=== PATIENT | female | born 1930 | race Caucasian/White ===

== ENCOUNTER 2017-01-08 14:16 | Inpatient (IN) ==
[2017-01-08] MEDS ORDERED: ZIPRASIDONE 20 MG/1 ML VIAL IM STA (14:22)
[2017-01-08] MEDS ORDERED: SODIUM CHLORIDE 0.9% 500 ML IV STA (14:23)
[2017-01-08] MEDS ORDERED: ZIPRASIDONE 20 MG/1 ML VIAL IM ONE (14:31)
--- NOTE | 2017-01-08 14:54 | Emergency Department Note ---
Scott Coley Hilary, am scribing for, and in the presence of, Jose Paniagua MD 14: 43. Arcelia Coley James D, MD, personally performed the services described in this documentation, ascribed by Sharon Chavez in my presence, and it is both accurate and complete [id number] . Arrival - Arrival Chief Complaint: Altered Mental Status Stated Complaint: altered mental status ED Nursing Triage Note: Brought in per EMS from home with c/o altered mental status onset last pm with worsening this am. Family reports she is more confused than normal, had difficulty walking at home. Uncooperative, yelling and cursing at present. Received from EMS in 4-point restraints, continually attempting to kick and hit staff. Mode of Arrival: Stretcher Limitations: No Limitations Source: Patient, RN Notes Reviewed Time Seen by Provider: 01/08/17 14:22 - History of Present Illness HPI Narrative: Pt is a 86 y/o white female brought into the ED via EMS from home with c/o AMS which onset last night and worsened this morning. Pts family is in the room and states that she is more confused than normal and has been having trouble walking. Yesterday morning she was able to walk just fine. Pts family denies fever or dysuria but they state that she can't communicate with her and that she wont talk. Pt has Alzheimers per family members. No other complaints or problems stated in the ED. Onset (ago): day(s) Consistency: constant Severity: severe Severity scale (1-10): 4 Date of Last Menstrual Period: PM Allergies/Adverse Reactions: Allergies Allergy/AdvReac Type Severity Reaction Status Date / Time No Known Allergies Allergy Verified 01/08/17 14:28 Home Medications: Home Medications Medication Instructions Recorded Confirmed Type Levothyroxine Tab [Synthroid Tab] 75 mcg PO DAILY@0700 06/27/15 06/27/15 History Memantine HCl [Namenda XR] 28 mg PO DAILY 06/27/15 06/27/15 History Omeprazole 20 mg PO DAILY 06/27/15 06/27/15 History Sertraline [Zoloft] 50 mg PO DAILY 06/27/15 06/27/15 History Solifenacin Succinate [Vesicare] 10 mg PO DAILY 12/15/15 12/15/15 History Atorvastatin [Lipitor] 80 mg PO BEDTIME #60 tablet 06/29/15 Rx Carvedilol [Coreg] 6.25 mg PO BID #60 tablet 06/29/15 Rx Cefuroxime Tab [Ceftin] 250 mg PO BID #10 tablet 06/29/15 Rx Clopidogrel [Plavix] 75 mg PO DAILY #30 tablet 06/29/15 Rx Donepezil [Aricept] 10 mg PO DAILY #30 tablet 06/29/15 Rx Gabapentin 300 mg PO BID #60 capsule 06/29/15 Rx Quetiapine Fumarate [Seroquel] 50 mg PO Q6H PRN #60 tablet 06/29/15 Rx metFORMIN [Glucophage] 250 mg PO BID W/MEALS #0 06/29/15 06/27/15 Rx Review of System - Review of System ROS unobtainable: due to mental status 12 point system: reviewed and no additional remarkable complaints except as stated - Review of System Constitutional: Present: weakness. Absent: fever Neurological: Present: weakness, confusion Medical,Surgical,& Family Hx - Social History Smoking Status: Never smoker Frequency of Alcohol Use: None Type of Drug Use: None Exam Physical Examination: GENERAL: This is a chronically ill appearing female, well-developed in no apparent distress. VITAL SIGNS: Temperature: 98.3 Pulse: 120 Respiratory: 24 Blood Pressure: 191/ 127 O2 Sat: 99 HEENT: Head is normocephalic and atraumatic. Pupils are equally round and reactive to light. Extraocular movement are intact. Oropharynx is benign with moist mucous membranes. NECK: Neck is soft and supple without tenderness. There are no masses. There is no lymphadenopathy. LUNGS: Lungs are clear to auscultation bilaterally. Chest rises symmetrically. There is no chest wall tenderness. CV: Heart is regular rate and rhythm without murmurs, rubs, or gallops. ABDOMEN: Abdomen is soft,non- tender to palpation. There are no abnormal masses palpated. There is no organomegaly. Bowel sounds are present and active. SKIN: Skin is warm and dry. No rash. EXTREMITIES: Patient has full range of motion without tenderness. There is no pedal edema. NEUROLOGIC: Awake, alert, and oriented x4. Cranial nerves II through XII are grossly intact. There are no motorsensory deficits. PSYCHIATRIC: Normal affect. Agitated, demented. Vital Signs: Vital Signs Temperature 98.3 F 01/08/17 15:00 Pulse Rate 111 H 01/08/17 15:00 Respiratory Rate 18 01/08/17 15:00 Blood Pressure 178/78 01/08/17 15:00 O2 Sat by Pulse Oximetry 96 01/08/17 15:00 Course - Consultations Consultation #1: Discussed with hospitalist. Patient will be admitted to their service. Time: 16:11 Results - Labs CBC & BMP: 01/08/17 15:00 01/08/17 15:00 Lab Results: I have reviewed the patients labs Labs: Laboratory Tests 01/08/17 01/08/17 01/08/17 15:00 15:00 15:00 WBC 6.4 RBC 4.07 Hgb 12.8 Hct 35.9 Plt Count 440 H INR 1.1 PT Patient/Control Mix 11.6 Circ Anticoag PTT 29.3 Sodium Potassium Chloride Carbon Dioxide Anion Gap BUN BUN/Creatinine Ratio Glucose Calcium Alkaline Phosphatase Globulin Albumin/Globulin Ratio TSH 3rd Generation Urine pH 6.0 Ur Specific [place] 1.002 Urine Ketones 5 Urine Nitrate Positive H Urine Urobilinogen < 2.0 H Urine Leukocytes Large H Urine WBC 51 Urine Opiates Screen Ur Barbiturates Screen Ur Phencyclidine Scrn U Amphetamine/Methamph U Benzodiazepines Scrn U Cocaine Metab Screen U Cannabinoids Screen Serum Alcohol 01/08/17 01/08/17 15:00 15:00 WBC RBC Hgb Hct Plt Count INR PT Patient/Control Mix Circ Anticoag PTT Sodium 140 Potassium 3.4 L Chloride 104 Carbon Dioxide 21 Anion Gap 18.4 H BUN 15 BUN/Creatinine Ratio 21.00 H Glucose 177 H Calcium 11.0 H Alkaline Phosphatase 131 H Globulin 3.6 H Albumin/Globulin Ratio 1.0 L TSH 3rd Generation 11.400 H Urine pH Ur Specific [place] Urine Ketones Urine Nitrate Urine Urobilinogen Urine Leukocytes Urine WBC Urine Opiates Screen Negative Ur Barbiturates Screen Negative Ur Phencyclidine Scrn Negative U Amphetamine/Methamph Negative U Benzodiazepines Scrn Negative U Cocaine Metab Screen Negative U Cannabinoids Screen Negative Serum Alcohol < 15 L - Diagnostic Findings Procedure: Chest x-ray: image reviewed by me, report reviewed by me (Chronic scarring with minimal atelectasis at the lung bases), CT: image reviewed by me, report reviewed by me (CT head: No convincing CT evidence of acute intracranial abnormality. If there is clinical concern for CVA, MRI may be of benefit for further evaluation. Probable chronic microvascular ischemic change and volume loss. Old left parietal infart. Old lacunar infarct of left basal ganglia) Disposition Clinical Impression: Agitation, Alzheimer's type dementia Case discussed with: patient, patient's family Disposition: Still a Patient Condition: Stable
[2017-01-08 15:14] LABS: Basophils # 0.1 10*3/uL (0.0-0.2); Basophils % 0.8 % (0.0-0.8); Eosinophils # 0.2 10*3/uL (0.0-0.87); Eosinophils % 3.1 % (0.00-10.9); Hematocrit 35.9 VOL% (35.7-47.0); Hemoglobin 12.8 GM/DL (12.0-16.0); Immature Granulocytes % 0.3 %; Immature Granulocytes Absolute 0.02 #; Lymphocytes # 1.8 10*3/uL (1.4-4.0); Lymphocytes % 28.2 % (21.3-54.2); Mean Corpuscular HGB Conc 35.7 GM/DL (32-36); Mean Corpuscular Hemoglobin 31 PG (27-34); Mean Corpuscular Volume 88.2 FL (87-102); Mean Platelet Volume 10.3 FL (9.6-12.0); Monocytes # 0.8 10*3/uL (0.11-0.8); Monocytes % 12.6 % (1.7-12.7); Neutrophils # 3.5 10*3/uL (1.4-7.4); Platelet Count 440 T/CUMM (130-400); Red Blood Count 4.07 MC/CUMM (3.8-5.5); Red Cell Distribution Width 12.7 % (9.3-17.3); White Blood Count 6.4 T/CUMM (4-12)
[2017-01-08 15:25] LABS: INR 1.1; PT Patient Result 11.6 SECS; Partial Thromboplastin Time 29.3 SECS (0-40)
--- NOTE | 2017-01-08 15:27 | XRay Report ---
Portable chest Date: 01/08/2017 Clinical history: Alteration of consciousness Comparison: 06/27/2015 Technique: Portable AP sitting chest Findings: The heart is normal in size. Calcified granulomata/nodes with chronic scarring. Minimal atelectasis at the lung bases. Stable mediastinum and osseous structures. Impression: Chronic scarring with minimal atelectasis at the lung bases. PROCEDURE INTERPRETED AT [facility] DEPARTMENT OF RADIOLOGY Final Report Signed by: Dr. Dahiana Harvey
[2017-01-08 15:31] LABS: Ammonia 17 UMOL/L (11-32)
--- NOTE | 2017-01-08 15:37 | CT Report ---
CT head/brain wo con Indication: Mental status changes Comparison: CT brain dated June 27, 2015 Technique: Multiple axial tomographic images of the brain were obtained without the use of intravenous contrast. Findings: Midline structures are nondisplaced. Moderate global volume loss present. Marked periventricular and subcortical hypoattenuation noted which is nonspecific but consistent with chronic microvascular ischemic change. Demyelinating process and vasculitis also considerations. Moderate encephalomalacia the left parietal lobe consistent with old infarct. Old lacunar infarct of left basal ganglia. There is no evidence of acute intracranial hemorrhage or hydrocephalus. Atherosclerotic calcifications demonstrated. The visualized paranasal sinuses and bilateral mastoid air cells are essentially clear. IMPRESSION: No convincing CT evidence of acute intracranial abnormality. If there is clinical concern for CVA, MRI may be of benefit for further evaluation. Probable chronic microvascular ischemic change and volume loss. Old left parietal infarct. Old lacunar infarct of left basal ganglia. The CT exam was performed using one or more of the following dose reduction techniques: Automated exposure control, adjustment of the mA and/or kV according to patient size, or use of iterative reconstruction technique. PROCEDURE INTERPRETED AT [facility] DEPARTMENT OF RADIOLOGY Final Report Signed by: Dr Valdo Gibbs
[2017-01-08 15:41] LABS: Apearance,Urine Slightly Hazy (Clear); Bilirubin,Urine Negative (Negative); Blood, Urine Negative (Negative); Glucose,Urine (UA) Negative (Negative); Ketones,Urine 5 mg/dL (Negative); Nitrite,Urine Positive (Negative); Protein,Urine Negative; Urine Color Yellow (Yellow); Urine Specific Gravity 1.002 (1.001-1.035); Urine Urobilinogen < 2.0 EU/DL (0.2-1.0); WBC,Urine 51 /HPF (0-6)
[2017-01-08 15:45] LABS: Barbiturates Screen,Urine Negative (Negative); Benzodiazepines Screen,Urine Negative (Negative); Cannabinoid Screen,Urine Negative (Negative); Opiate Screen,Urine Negative (Negative); Phencyclidine Screen,Urine Negative (Negative)
[2017-01-08 15:51] LABS: Alanine Aminotransferase 14 U/L (13-56); Albumin 3.9 G/DL (3.4-5.0); Alkaline Phosphatase 131 U/L (45-117); Aspartate Amino Transferase 11 U/L (0-37); Blood Urea Nitrogen 15 MG/DL (7-18); Glucose 177 MG/DL (74-106); Osmolality,Calculated 283.4 MOS/KG (273-304); Potassium 3.4 MMOL/L (3.5-5.1); Sodium 140 MMOL/L (136-145); Total Protein 7.5 G/DL (6.4-8.3)
[2017-01-08] MEDS ORDERED: cefTRIAXone 1,000 MG in SODIUM CHLORIDE 0.9% 100 ML IV STA (16:06)
[2017-01-08] MEDS ORDERED: cefTRIAXone 1,000 MG VIAL ONE (16:14)
--- NOTE | 2017-01-08 17:53 | Hospitalist History & Physical ---
Assessment and Plan (1) UTI (urinary tract infection) Status: Acute Assessment and plan: Start rocephin, f/u cultures Current Visit: No (2) Diabetes mellitus Status: Acute Assessment and plan: SSI Current Visit: No (3) Hypertension Status: Acute Assessment and plan: Elevated now, most likely due to agitation Takes coreg 6.25 daily at home, will continue at BID Current Visit: No (4) Agitation Status: Acute Assessment and plan: Geodon IM PRN Current Visit: Yes (5) Alzheimer's type dementia Status: Acute Current Visit: Yes (6) Hypothyroid Status: Acute Assessment and plan: No longer takes levothyroxine TSH elevated at 11 Will check free T4 Current Visit: Yes (7) Generalized weakness Status: Acute Assessment and plan: CT head without acute process Order MRI Current Visit: Yes History of Present Illness Chief complaint: weakness History of present illness: Ms. Hilliard is a 86 year old female WF with history of stroke (residual slurred speech) and dementia who presents with weakness. Patient has dementia and slurred speech so history is from . He reports that patient experienced leg weakness starting yesterday, she was unable to hold herself. She usually has a really good appetite, but has not been eating today. Family unable to say how different patient's mental status is from baseline. They are unable to understand her due to her stroke. They report that she does seem more agitated than usual. She is able to ambulate on her own at baseline. Of note she was previously on hospice but the family discontinued it. The reports that she only takes Plavix 75 daily, metformin 500 daily and coreg 6.25 Daily. He has to crush up her metformin and sneak it into a drink. She refuses to take all of her other medications except for seroquel sometimes. In the ED patient with CT showing old rowan but nothing acute. She was noted to have a urinary tract infection. She will be admitted to the hospitalist service for continuation of care. Code status discussed with the patient and he would like for patient to be Do Not Intubate. Medical reconciliation has been done. Home Medications Medication Instructions Recorded Confirmed Type Levothyroxine Tab [Synthroid Tab] 75 mcg PO DAILY@0700 06/27/15 06/27/15 History Memantine HCl [Namenda XR] 28 mg PO DAILY 06/27/15 06/27/15 History Omeprazole 20 mg PO DAILY 06/27/15 06/27/15 History Sertraline [Zoloft] 50 mg PO DAILY 06/27/15 06/27/15 History Solifenacin Succinate [Vesicare] 10 mg PO DAILY 06/27/15 06/27/15 History Atorvastatin [Lipitor] 80 mg PO BEDTIME #60 tablet 06/29/15 Rx Carvedilol [Coreg] 6.25 mg PO BID #60 tablet 06/29/15 Rx Cefuroxime Tab [Ceftin] 250 mg PO BID #10 tablet 06/29/15 Rx Clopidogrel [Plavix] 75 mg PO DAILY #30 tablet 06/29/15 Rx Donepezil [Aricept] 10 mg PO DAILY #30 tablet 06/29/15 Rx Gabapentin 300 mg PO BID #60 capsule 06/29/15 Rx Quetiapine Fumarate [Seroquel] 50 mg PO Q6H PRN #60 tablet 06/29/15 Rx metFORMIN [Glucophage] 250 mg PO BID W/MEALS #0 06/29/15 06/27/15 Rx Allergies Allergy/AdvReac Type Severity Reaction Status Date / Time No Known Allergies Allergy Verified 01/08/17 14:28 Medical,Surgical,& Family Hx - Medical History Psychological: History of: Depression Endocrine: History of: Dyslipidemia - Surgical History Reproductive Surgeries: Surgical HX of;: Hysterectomy - Family History Family History: Reports;: Family Diabetes, Family Stroke - Social History Smoking Status: Never smoker Frequency of Alcohol Use: None Type of Drug Use: None ROS unobtainable: due to mental status Exam - Constitutional Vitals: Period Temp Pulse Resp BP Sys/Shaw Pulse Ox Last 24 Hr 98.3 F-98.3 F 93-120 16-24 145-200/78-127 96-100 General appearance: normal weight - Head Head exam: Present: normocephalic, atraumatic - Eye Eye exam: Present: EOMI Pupils: Present: DARCY - ENT ENT exam: Present: other (dry mucus membranes) - Neck Neck exam: Present: normal inspection - Respiratory Respiratory exam: Present: clear to auscultation bilaterally. Absent: wheezes - Cardiovascular Cardiovascular exam: Present: regular rate and rhythm - GI/Abdominal GI/Abdominal exam: Present: normal bowel sounds, soft. Absent: tenderness - Extremities Exam Extremities exam: Present: normal inspection - Back Exam Back exam: Present: normal inspection - Neurological Exam Neurological exam: Present: alert, oriented X3 - Psychiatric Psychiatric exam: Present: normal affect, normal mood - Skin Skin exam: Present: warm, intact Results - Labs CBC & BMP: 01/08/17 15:00 01/08/17 15:00
[2017-01-08] MEDS ORDERED: ACETAMINOPHEN 325 MG TABLET PO PRN (18:04)
[2017-01-08] MEDS ORDERED: QUEtiapine 100 MG TABLET PO PRN (18:04)
[2017-01-08] MEDS ORDERED: GLUCAGON 1 MG VIAL IM PRN (18:04)
[2017-01-08] MEDS ORDERED: LACTULOSE 20 GM/30 ML UDCUP PO PRN (18:04)
[2017-01-08] MEDS ORDERED: ONDANSETRON 4 MG/2 ML VIAL IV PRN (18:04)
[2017-01-08] MEDS ORDERED: DOCUSATE SODIUM 100 MG CAPSULE PO PRN (18:04)
[2017-01-08] MEDS: SODIUM CHLORIDE 0.9% 1,000 ML IV SCH ×2 (19:04→23:53)
[2017-01-08] MEDS: ZIPRASIDONE 20 MG/1 ML VIAL IM PRN (20:39)
[2017-01-08] MEDS: CARVEDILOL 6.25 MG TABLET PO SCH (20:44)
[2017-01-08] MEDS ORDERED: LORazepam 2 MG/1 ML VIAL IV ONE (21:22)
[2017-01-08] MEDS ORDERED: HALOPERIDOL 5 MG/ML AMP IM ONE (21:23)
[2017-01-08] MEDS: INSULIN LISPRO 100 UNIT/ML SUBCUT SCH (22:40)
[2017-01-08] MEDS: ENOXAPARIN 40 MG/0.4 ML SYRINGE SUBCUT SCH (22:41)
[2017-01-09 05:34] LABS: Basophils # 0.1 10*3/uL (0.0-0.2); Basophils % 0.9 % (0.0-0.8); Eosinophils # 0.2 10*3/uL (0.0-0.87); Eosinophils % 3.3 % (0.00-10.9); Hematocrit 38.2 VOL% (35.7-47.0); Hemoglobin 13.2 GM/DL (12.0-16.0); Immature Granulocytes % 0.4 %; Immature Granulocytes Absolute 0.02 #; Lymphocytes % 34.9 % (21.3-54.2); Mean Corpuscular HGB Conc 34.6 GM/DL (32-36); Mean Corpuscular Hemoglobin 31 PG (27-34); Mean Platelet Volume 10.6 FL (9.6-12.0); Monocytes % 16.6 % (1.7-12.7); Neutrophils # 2.5 10*3/uL (1.4-7.4); Neutrophils % 43.9 % (38.7-73.9); Platelet Count 478 T/CUMM (130-400); White Blood Count 5.7 T/CUMM (4-12)
[2017-01-09 05:56] LABS: Band Neutrophils 1 % (0-10); Eosinophils 1 % (0-10); Hypochromasia Slight; Lymphocytes 37 % (20-55); Ovalocytes Slight; Segmented Neutrophils 44 % (50-85); Total Cells Counted 100
[2017-01-09 05:57] LABS: Platelet Estimate Increased
[2017-01-09 06:01] LABS: Calcium 9.5 MG/DL (8.5-10.1); Magnesium 1.9 MG/DL (1.8-2.4); Osmolality,Calculated 288.7 MOS/KG (273-304)
[2017-01-09] MEDS: SODIUM CHLORIDE 0.9% 1,000 ML IV SCH ×3 (07:14→20:33)
--- NOTE | 2017-01-09 08:41 | Physician Query Form ---
CLICK EDIT DOCUMENT TO SELECT QUERY ANSWER --> OK --> SIGN April Masters RN Clinical Call Worker W) [phone] (f) [phone] [email or web address] PROVIDERS: Make your selection(s) from the choices in EACH section by typing an "x" and enter comments in the comment section Please use your independent medical judgment in providing your response. This request does not imply that any particular answer is desired or expected. CLINICAL INDICATORS: (Providers should not edit this section) Based on documentation of "acute Alzheimer's type dementia" and "acute agitation ". Pt. treated with Geodon. Alzheimer's disease/dementia was documented in the record. If possible, please further clarify type of Alzheimer's and any associated manifestations: TYPE: ( ) Early Onset ( ) Late onset ( ) Other Alzheimer's disease, please specify: ( x) Clinically unable to determine ASSOCIATED MANIFESTATIONS: ( x) Dementia with acute delirium ( ) Dementia with behavioral disturbance (e.g., aggressive, combative, violent) ( ) Dementia with wandering ( ) Acute confusional state ( ) No associated manifestations ( ) Other manifestation, please specify: ( ) Clinically unable to determine COMMENTS: PLEASE ALSO DOCUMENT RESPONSE IN PROGRESS NOTES AND/OR DISCHARGE SUMMARY Use of terms such as suspected, likely, or probable (associated with a specific diagnosis that is being evaluated, monitored, or treated as if it exists) are acceptable and can be restated in the discharge summary if not ruled out. MTDD
[2017-01-09] MEDS ORDERED: LORazepam 2 MG/1 ML VIAL IV ONE (08:46)
[2017-01-09] MEDS ORDERED: LORazepam 2 MG/1 ML VIAL ONE (09:44)
[2017-01-09] MEDS: CARVEDILOL 6.25 MG TABLET PO SCH ×3 (09:45→17:48)
[2017-01-09] MEDS: CLOPIDOGREL 75 MG TABLET PO SCH ×2 (09:45→10:02)
[2017-01-09] MEDS: PANTOPRAZOLE 40 MG TABLET PO SCH ×2 (09:45→10:03)
[2017-01-09] MEDS: INSULIN LISPRO 100 UNIT/ML SUBCUT SCH ×4 (09:45→21:41)
[2017-01-09] MEDS: ZIPRASIDONE 20 MG/1 ML VIAL IM PRN ×2 (12:07→20:20)
[2017-01-09] MEDS: DEXTROSE 50% 25 GM/50 ML VIAL IV PRN ×2 (13:06→21:29)
--- NOTE | 2017-01-09 14:41 | Magnetic Resonance Report ---
Exam: MR head/brain wo con Date: 01/09/2017 6:04 PM Comparison: 06/28/2015, CT brain 01/08/2017 Indication: Alteration of consciousness with generalized weakness, prior CVA with slurred speech and progressive leg weakness. Technique:[Multiple acquisitions were obtained including sagittal T1, coronal T2, and axial ADC, diffusion, FLAIR, T2, GRE, and T1 scans without contrast only. Scans were obtained on an open 1.2 Cori magnet.] Findings: The ventricles are borderline in size with no midline displacement. The pituitary has normal appearance and the cerebellar tonsils are normal in their location. 16.8 mm area restricted diffusion in the right external capsule. Chronic left parietal and basal ganglia infarcts. Progressive atrophy and FLAIR/T2 hyperintensities. Minimal mucosal thickening in paranasal sinuses. No acute findings in the orbits or temporal bones. Impression: Acute ischemic 16.8 mm infarction in the right external capsule. Chronic left parietal and basal ganglia infarcts with progressive atrophy and extensive microvascular disease. Minimal sinusitis. PROCEDURE INTERPRETED AT [facility] DEPARTMENT OF RADIOLOGY Final Report Signed by: Dr. Dahiana Harvey
--- NOTE | 2017-01-09 15:05 | Hospitalist Progress Note ---
Assessment and Plan (1) UTI (urinary tract infection) Status: Acute Assessment and plan: Continue rocephin, f/u cultures Current Visit: No (2) Diabetes mellitus Status: Chronic Assessment and plan: SSI Current Visit: No (3) Hypertension Status: Chronic Assessment and plan: Elevated now, most likely due to agitation Takes coreg 6.25 daily at home, will continue at BID Current Visit: No (4) Agitation Status: Acute Assessment and plan: Geodon IM PRN Ativan prn, only thing that seems to work Current Visit: Yes (5) Alzheimer's type dementia Status: Acute Current Visit: Yes (6) Hypothyroid Status: Acute Assessment and plan: No longer takes levothyroxine TSH elevated at 11, free T4 wnl Current Visit: Yes (7) Generalized weakness Status: Acute Assessment and plan: CT head without acute process MRI with acute ischemic infarction in right external capsule Current Visit: Yes Hospitalist: Subjective Interval history: Patient with increased agitation overnight. Requiring restraints and multiple medications. Acute stroke on MRI today Exam - Constitutional Vitals: Period Temp Pulse Resp BP Sys/Shwa Pulse Ox Last 24 Hr 96.5 F-98.4 F 60-100 16-20 120-200/71-104 94-100 General appearance: normal weight - Head Head exam: Present: normocephalic, atraumatic - Eye Eye exam: Present: EOMI Pupils: Present: DARCY - ENT ENT exam: Present: normal exam - Neck Neck exam: Present: normal inspection - Respiratory Respiratory exam: Present: clear to auscultation bilaterally. Absent: wheezes - Cardiovascular Cardiovascular exam: Present: regular rate and rhythm - GI/Abdominal GI/Abdominal exam: Present: normal bowel sounds, soft. Absent: tenderness - Extremities Exam Extremities exam: Present: normal inspection - Back Exam Back exam: Present: normal inspection - Neurological Exam Neurological exam: Present: other (lethargic) - Skin Skin exam: Present: warm, intact Results - Labs CBC & BMP: 01/09/17 04:35 01/09/17 04:35
--- NOTE | 2017-01-09 16:21 | Ultrasound Report ---
Exam: Carotid ultrasound Date: 01/09/2017 Comparison: Well 2014 Technique: Duplex scans of the carotid and vertebral arteries using B-mode/Dickson scale imaging and Doppler spectral analysis and color flow. Reason: Acute CVA, alteration of consciousness, weakness Findings: The right ICA measures 3.9 mm in diameter and the left ICA measures 4.3 mm in diameter. Color-flow documented in the visualized arteries. The peak systolic velocities are as follows: Right CCA: 52.0 cm/s Right ICA: 55.2 cm/s Right ECA: 44.4 cm/s Left CCA: 54.0 cm/s Left ICA: 61.9 cm/s Left ECA: 82.9 cm/s The peak systolic ICA/CCA velocity ratios are as follows: 1.1 on the right and 1.1 on the left. Antegrade flow is present in both vertebral arteries. Impression:[Less than 50% stenosis in both internal carotid arteries with heterogeneous plaque formation. Antegrade flow in both vertebral arteries.] The Society of Radiologists in Ultrasound consensus conference criteria was used. The Ultrasound images were captured and stored. PROCEDURE INTERPRETED AT [facility] DEPARTMENT OF RADIOLOGY Final Report Signed by: Dr. Dahiana Harvey
[2017-01-09] MEDS: LORazepam 2 MG/1 ML VIAL IV PRN (17:00)
[2017-01-09] MEDS: cefTRIAXone 1,000 MG in SODIUM CHLORIDE 0.9% 100 ML IV SCH (17:00)
--- NOTE | 2017-01-09 19:38 | Neurology Consult Note ---
History of Present Illness History of present illness: Ms. Hilliard is a 86 year old female WF with history of stroke (residual slurred speech), some difficulty in walking and dementia who presents with sudden onset of weakness. Family reports that patient experienced leg weakness starting yesterday, she was unable to hold herself. She usually has a really good appetite, but has not been eating today. She is quite obtunded which is new for the patient. She is obtunded enough that she cannot take anything by mouth at this time. She is quite restless and agitated. MRI of the brain revealed 16.5 mm acute infarct in the right external capsule. Patient is DNI and has been has a power of real estate attorney. He does not want any artificial feeding support either. She was able to ambulate on her own at baseline. Of note she was previously on hospice but the family discontinued it. Patient has been on Plavix at home. Home Medications Medication Instructions Recorded Confirmed Type Carvedilol [Coreg] 6.25 mg PO BID #60 tablet 06/29/15 01/09/17 Rx Clopidogrel [Plavix] 75 mg PO DAILY #30 tablet 06/29/15 01/09/17 Rx QUEtiapine [SEROquel] 100 mg PO TID 01/09/17 01/09/17 History metFORMIN [Glucophage] 500 mg PO DAILY 01/09/17 01/09/17 History Allergies Allergy/AdvReac Type Severity Reaction Status Date / Time No Known Allergies Allergy Verified 01/08/17 14:28 ROS unobtainable: due to mental status, due to delirium Medical,Surgical,& Family Hx - Medical History Psychological: History of: Depression No history of: Anxiety Disorders, ADHD, Behavior Problems, Bipolar Disorder, Previous Suicide Attempt, Psychiatric/Substance Abuse Tx, Schizophrenia, Violent Behavior, Psychiatric Problems Endocrine: History of: Dyslipidemia - Surgical History HEENT Surgeries: Surgical HX of: Eye Surgery (bilat cataracts) Reproductive Surgeries: Surgical HX of;: Hysterectomy - Family History Family History: Reports;: Family Diabetes, Family Stroke - Social History Smoking Status: Never smoker Frequency of Alcohol Use: None Type of Drug Use: None Exam - Constitutional Vitals: Period Temp Pulse Resp BP Sys/Shaw Pulse Ox Last 24 Hr 97.0 F-98.4 F 60-95 16-20 120-173/71-85 93-96 Exam: GENERAL: Patient is in no acute distress. NECK: Neck is supple. There is no JVD. No carotid bruits present. No thyroid masses. CVS: First and second heart sounds are normal. There is no S3 present. Regular rate and rhythm. RESPIRATORY: Lungs are clear to auscultation without any rales or rhonchi. ABDOMEN: Soft and non-tender. Bowel sounds are present. There is no hepatosplenomegaly. EXT: There is no palpable edema. Peripheral pulses are present. Skin: No rashes Central Nervous system: General: Obtunded Speech: None Comprehension: Impaired at this Facial expressions: Normal Cranial Nerves: Pupils are equally reactive to light. Doll's head eye movements are positive. No facial asymmetry is seen Motor: Bulk and Tone is normal. Strength cannot be assessed Sensory: Cannot be assessed Reflexes: 1+ and symmetrical Cerebellar function: Cannot be assessed Toes: Equivocal Gait: Cannot be assessed Results - Labs CBC & BMP: 01/09/17 04:35 01/09/17 04:35 Assessment and Plan (1) CVA (cerebral vascular accident) Status: Acute Assessment and plan: Family does not want any NG tube placement or PEG tube placement. Continue Lovenox for now. Patient is not a good candidate for inpatient rehabilitation either. Thank you for the consult Current Visit: Yes
[2017-01-09] MEDS: ENOXAPARIN 40 MG/0.4 ML SYRINGE SUBCUT SCH (21:33)
[2017-01-10] MEDS: LORazepam 2 MG/1 ML VIAL IV PRN ×4 (00:39→21:10)
[2017-01-10] MEDS: SODIUM CHLORIDE 0.9% 1,000 ML IV SCH ×3 (04:34→21:15)
[2017-01-10 06:38] LABS: Basophils # 0.1 10*3/uL (0.0-0.2); Basophils % 0.8 % (0.0-0.8); Eosinophils # 0.1 10*3/uL (0.0-0.87); Eosinophils % 1.5 % (0.00-10.9); Hematocrit 37.6 VOL% (35.7-47.0); Hemoglobin 12.9 GM/DL (12.0-16.0); Immature Granulocytes % 0.4 %; Immature Granulocytes Absolute 0.03 #; Lymphocytes # 1.9 10*3/uL (1.4-4.0); Lymphocytes % 25.1 % (21.3-54.2); Mean Corpuscular HGB Conc 34.3 GM/DL (32-36); Mean Corpuscular Hemoglobin 31 PG (27-34); Mean Corpuscular Volume 88.9 FL (87-102); Mean Platelet Volume 10.3 FL (9.6-12.0); Monocytes % 13.4 % (1.7-12.7); Neutrophils # 4.3 10*3/uL (1.4-7.4); Neutrophils % 58.8 % (38.7-73.9); Platelet Count 510 T/CUMM (130-400); Red Blood Count 4.23 MC/CUMM (3.8-5.5); Red Cell Distribution Width 12.5 % (9.3-17.3); White Blood Count 7.4 T/CUMM (4-12)
[2017-01-10 07:08] LABS: Calcium 9.2 MG/DL (8.5-10.1); Magnesium 1.8 MG/DL (1.8-2.4); Osmolality,Calculated 281.4 MOS/KG (273-304); Potassium 3.8 MMOL/L (3.5-5.1)
[2017-01-10 07:10] LABS: Risk Ratio 4.09; VLDL CHOLESTEROL 34.4 MG/DL
[2017-01-10 07:20] LABS: Folate > 24.0 NG/ML (5.4-24.0); Vitamin B12 652 PG/ML (211-911)
--- NOTE | 2017-01-10 10:17 | Hospitalist Progress Note ---
Assessment and Plan (1) UTI (urinary tract infection) Status: Acute Assessment and plan: Continue rocephin, f/u cultures Current Visit: No (2) Diabetes mellitus Status: Chronic Assessment and plan: SSI Current Visit: No (3) Hypertension Status: Chronic Assessment and plan: Elevated now, most likely due to agitation Takes coreg 6.25 daily at home, continued at BID, increasing today Current Visit: No (4) Agitation Status: Acute Assessment and plan: Geodon IM PRN Ativan prn Patient has some baseline intermittent agitation per family but much worse now Will treat for UTI over the weekend Current Visit: Yes (5) Alzheimer's type dementia Status: Acute Current Visit: Yes (6) Hypothyroid Status: Acute Assessment and plan: No longer takes levothyroxine TSH elevated at 11, free T4 wnl Current Visit: Yes (7) Generalized weakness Status: Acute Assessment and plan: CT head without acute process MRI with acute ischemic infarction in right external capsule Current Visit: Yes (8) CVA (cerebral vascular accident) Status: Acute Assessment and plan: History of multiple CVAs Now with acute ischemic 16.8 mm infarction in the right external capsule Lipids and carotid dopplers ok Neurology evaluated Will attempt PT/OT Current Visit: Yes Hospitalist: Subjective Interval history: No acute events overnight. Patient at this point is either extremely agitated or sedated from medications. Will continue to treat for UTI and hope for some recovery. If none, will have to consider abhishek-psych referral. Exam - Constitutional Vitals: Period Temp Pulse Resp BP Sys/Shaw Pulse Ox Last 24 Hr 97.4 F-99.2 F 60-100 16-20 163-182/70-81 93-96 General appearance: normal weight - Head Head exam: Present: normocephalic, atraumatic - Eye Eye exam: Present: EOMI Pupils: Present: DARCY - ENT ENT exam: Present: normal exam - Neck Neck exam: Present: normal inspection - Respiratory Respiratory exam: Present: clear to auscultation bilaterally. Absent: rhonchi, wheezes - Cardiovascular Cardiovascular exam: Present: regular rate and rhythm - GI/Abdominal GI/Abdominal exam: Present: normal bowel sounds, soft. Absent: tenderness, rebound - Extremities Exam Extremities exam: Present: normal inspection - Back Exam Back exam: Present: normal inspection - Neurological Exam Neurological exam: Present: altered - Psychiatric Psychiatric exam: Present: agitated - Skin Skin exam: Present: warm, intact Results - Labs CBC & BMP: 01/10/17 06:03 01/10/17 06:03
[2017-01-10] MEDS: CLOPIDOGREL 75 MG TABLET PO SCH (10:39)
[2017-01-10] MEDS: INSULIN LISPRO 100 UNIT/ML SUBCUT SCH ×4 (10:39→20:46)
[2017-01-10] MEDS: CARVEDILOL 6.25 MG TABLET PO SCH (10:39)
[2017-01-10] MEDS: PANTOPRAZOLE 40 MG TABLET PO SCH (10:40)
--- NOTE | 2017-01-10 11:31 | ECHO Report ---
Yudi Hilliard Exam Date: 01/10/2017 10:04 Referring Physician: Technologist: Mimi Maria RDCS Age: 86 Ht (in): 65 Wt (lb): 130 Gender: F Exam Location: [facility] Echo Indications: Weakness, Dementia, CVA, Diabetes, UTI BP: 163 / 74 HR: 96 Rhythm: Sinus Technical Quality: Technically difficult study IMPRESSIONS Hyperdynamic left ventricle. EF 65 %. Grade I/IV diastolic dysfunction (abnormal relaxation filling pattern), normal to mildly elevated filling pressures. The right ventricle is normal in size and function. The right atrium is mildly enlarged. Moderately increased left atrial size. Mildly thickened mitral valve. Trace mitral valve regurgitation. No aortic valve regurgitation. Moderate tricuspid valve regurgitation. PAP52 mmHG. Pulmonic valve not well visualized. Normal pericardium without effusion. Normal ascending aorta dimension No LV or LA clot seen.. MEASUREMENTS (Male / Female) Normal Values 2D ECHO LV Diastolic Diameter PLAX 2.8 cm 4.2 - 5.9 / 3.9 - 5.3 cm LV Systolic Diameter PLAX 1.8 cm LV Fractional Shortening PLAX 36.8 % IVS Diastolic Thickness 0.9 cm 0.6 - 1.0 / 0.6 - 0.9 cm LVPW Diastolic Thickness 1.0 cm 0.6 - 1.0 / 0.6 - 0.9 cm RV Internal Dim ED PLAX 2.6 cm Aortic Root Diameter 3.2 cm LA Systolic Diameter LX 3.3 cm 3.0 - 4.0 / 2.7 - 3.8 cm DOPPLER TR Peak Velocity 320.0 cm/s TR Peak Gradient 41.0 mmHg FINDINGS Left Ventricle Hyperdynamic left ventricle.EF 65 %. Grade I/IV diastolic dysfunction (abnormal relaxation filling pattern), normal to mildly elevated filling pressures. Right Ventricle The right ventricle is normal in size and function. Right Atrium The right atrium is mildly enlarged. Left Atrium Moderately increased left atrial size. Mitral Valve Mildly thickened mitral valve. Trace mitral valve regurgitation. Aortic Valve Aortic valve sclerosis. No aortic valve regurgitation. Tricuspid Valve Morphologically normal tricuspid valve. Moderate tricuspid valve regurgitation. PAP52 mmHG. Pulmonic Valve Pulmonic valve not well visualized. Pericardium Normal pericardium without effusion. Aorta Normal ascending aorta dimension. Jah Potter (Electronically Signed) Final Date: 10 January 2017 11:30
[2017-01-10] MEDS ORDERED: CARVEDILOL 12.5 MG TABLET PO SCH (12:59)
[2017-01-10] MEDS: hydrALAZINE 20 MG/1 ML VIAL IV SCH ×2 (15:32→21:08)
[2017-01-10] MEDS: cefTRIAXone 1,000 MG in SODIUM CHLORIDE 0.9% 100 ML IV SCH (16:09)
[2017-01-10] MEDS: ENOXAPARIN 40 MG/0.4 ML SYRINGE SUBCUT SCH (21:07)
[2017-01-11] MEDS: LORazepam 2 MG/1 ML VIAL IV PRN ×2 (02:10→05:53)
[2017-01-11] MEDS: hydrALAZINE 20 MG/1 ML VIAL IV SCH ×4 (04:07→21:15)
[2017-01-11] MEDS: SODIUM CHLORIDE 0.9% 1,000 ML IV SCH ×4 (05:52→23:55)
[2017-01-11] MEDS: INSULIN LISPRO 100 UNIT/ML SUBCUT SCH ×4 (09:18→22:20)
[2017-01-11] MEDS: CLOPIDOGREL 75 MG TABLET PO SCH (10:36)
[2017-01-11] MEDS: PANTOPRAZOLE 40 MG TABLET PO SCH (10:36)
--- NOTE | 2017-01-11 17:06 | Hospitalist Progress Note ---
Assessment and Plan (1) Dementia Status: Chronic Current Visit: No (2) UTI (urinary tract infection) Status: Acute Assessment and plan: Urine culture positive for E. coli, continue ceftriaxone 1 g IV daily Current Visit: No (3) DNR (do not resuscitate) Status: Chronic Current Visit: No (4) Agitation Status: Acute Assessment and plan: Nursing staff to try a trial of removing restraints, will reassess and adjust need for restraints accordingly Current Visit: Yes (5) Generalized weakness Status: Acute Assessment and plan: Awaiting [facility] placement from social sciences professor, will rehab when patient is able to participate. Current Visit: Yes Hospitalist: Subjective Interval history: Patient lying comfortably in bed, asleep, in restraints and in no acute distress. Patient in restraints due to becoming agitated and pulling lines, swinging at staff and kicking at staff. Urine culture positive for E. coli. Patient likely altered due to infection, may take a couple of days for this to clear. Spoke with who is present about long-term care in a [facility] facility with rehab services. He thinks this is a reasonable option and social sciences professor is working on placement. Patient did not want to wake up for review of systems. Exam - Constitutional Vitals: Period Temp Pulse Resp BP Sys/Shaw Pulse Ox Last 24 Hr 97.6 F-99.2 F 101-119 16-94 126-155/55-69 93-97 General appearance: normal weight, no acute distress - Respiratory Respiratory exam: Present: clear to auscultation bilaterally (Lungs clear anteriorly.) - Cardiovascular Cardiovascular exam: Present: regular rate and rhythm - GI/Abdominal GI/Abdominal exam: Present: normal bowel sounds, soft - Neurological Exam Neurological exam: Present: altered - Skin Skin exam: Present: warm Results - Labs CBC & BMP: 01/10/17 06:03 01/10/17 06:03 Lab Results: I have reviewed the past 24 hour labs
[2017-01-11] MEDS: cefTRIAXone 1,000 MG in SODIUM CHLORIDE 0.9% 100 ML IV SCH (17:50)
[2017-01-11] MEDS: ENOXAPARIN 40 MG/0.4 ML SYRINGE SUBCUT SCH (21:15)
[2017-01-12] MEDS: hydrALAZINE 20 MG/1 ML VIAL IV SCH ×3 (03:45→16:04)
[2017-01-12] MEDS: SODIUM CHLORIDE 0.9% 1,000 ML IV SCH ×2 (06:03→13:20)
[2017-01-12] MEDS: INSULIN LISPRO 100 UNIT/ML SUBCUT SCH ×4 (09:07→22:58)
[2017-01-12] MEDS: CLOPIDOGREL 75 MG TABLET PO SCH (09:32)
[2017-01-12] MEDS: PANTOPRAZOLE 40 MG TABLET PO SCH (09:32)
--- NOTE | 2017-01-12 14:35 | CT Report ---
History: Altered mental status Date: 01/12/2017 Study: CT head without contrast Comparison exam: CT head December 31, 2016, MRI head January 09, [address] sections were obtained through the head without IV contrast. This CT exam was performed using one or more the following dose reduction techniques: Automated exposure control, adjustment of the MA and/or KV according to patient size, or use of iterative reconstruction technique. The ventricles are midline in position without evidence of hydrocephalus. There is moderate cerebral atrophy. There is no mass or parenchymal hemorrhage. There is a recent 21 mm area of ischemia in the right alonso radiata extending into the external capsule which corresponds to the MRI lesion. No significant interval changes are identified otherwise compared to the previous studies. There is a large chronic area of left parietal ischemia measuring 6.2 cm in a left MCA distribution. There is no parenchymal hemorrhage or new area of mass effect. There is a moderate amount of ill-defined low density in the periventricular white matter without mass effect compatible with changes of small vessel disease. There is no acute extra-axial hematoma. The bony calvarium is unchanged. The paranasal sinuses and mastoid air cells remain relatively clear. Impression: Recent area of ischemia in the right alonso radiata extending into the right external capsule area which corresponds to the MRI finding from January 09, 2017. Chronic ischemic changes otherwise. No significant interval change otherwise PROCEDURE INTERPRETED AT [facility] DEPARTMENT OF RADIOLOGY Final Report Signed by: Dr. Mandy Blanton
--- NOTE | 2017-01-12 15:26 | Hospitalist Progress Note ---
Assessment and Plan (1) UTI (urinary tract infection) Status: Acute Assessment and plan: Continue Rocephin IV Current Visit: No (2) Diabetes mellitus Status: Chronic Assessment and plan: Blood sugars are running a little bit on the higher end despite no food. Asked nursing to give pured diet and to feed regardless of risk of aspiration. Current Visit: No (3) Acute CVA (cerebrovascular accident) Status: Acute Assessment and plan: Head CT today does not show any worsening of her acute stroke. Hold Plavix due to inability to take at this time and possible need for a PEG tube. Will attempt to feed her pured diet. Current Visit: No (4) Agitation Status: Acute Assessment and plan: Hold Geodon, Seroquel, Ativan Current Visit: Yes (5) Alzheimer's type dementia Status: Acute Assessment and plan: Patient has end-stage dementia do not feel that Namenda or Aricept will add any benefit Current Visit: Yes (6) Hypothyroid Status: Acute Assessment and plan: levothyroxine 25 mcg IV daily Current Visit: Yes Hospitalist: Subjective Interval history: Patient is more somnolent today. Head CT does not show acute change. I have spoke with the and he would like to try to feed her even though he is understands that she may aspirate. He does not really want to do a PEG tube as he is worried that she will pull it out. Also patient has advanced dementia and probably will not extend her life at this point. Patient has not really eaten anything or taken her pills since the . She is not taken her Plavix since the . Patient's would like her to go to [facility]. Discuss CODE STATUS with patient's today. We initially made her DNR but with her not eating I addressed comfort care measures with him. He would like to go ahead and feed her even if it causes aspiration. Exam - Constitutional Vitals: Period Temp Pulse Resp BP Sys/Shaw Pulse Ox Last 24 Hr 98.0 F-100.1 F 65-127 18-24 139-160/48-73 92-93 Exam: Heart Rate-[tachy] Lungs-[Clear but diminished, sleeping ] GI-[+bs soft, NT] Neuro altered and somnolent psych cannot assess due to AMS General [no acute distress] Results - Labs CBC & BMP: 01/10/17 06:03 01/10/17 06:03 Lab Results: I have reviewed the past 24 hour labs Labs: Urine culture growing E. coli sensitive to Rocephin - Diagnostic Findings Procedure: MRI: report reviewed by me (Right alonso radiata extending to the right external capsule)
[2017-01-12] MEDS: LEVOTHYROXINE 100 MCG VIAL IV SCH (17:05)
[2017-01-12] MEDS: cefTRIAXone 1,000 MG in SODIUM CHLORIDE 0.9% 100 ML IV SCH (17:05)
[2017-01-12] MEDS: ENOXAPARIN 40 MG/0.4 ML SYRINGE SUBCUT SCH (22:59)
[2017-01-13] MEDS: LEVOTHYROXINE 100 MCG VIAL IV SCH (06:47)
[2017-01-13] MEDS: DILTIAZEM 50 MG/10 ML VIAL IV PRN (08:01)
[2017-01-13] MEDS: PANTOPRAZOLE 40 MG TABLET PO SCH (08:02)
[2017-01-13] MEDS: INSULIN LISPRO 100 UNIT/ML SUBCUT SCH ×4 (08:35→21:47)
--- NOTE | 2017-01-13 14:22 | Hospitalist Progress Note ---
Assessment and Plan (1) UTI (urinary tract infection) Status: Acute Assessment and plan: Growing E. coli sensitive to Rocephin Current Visit: No (2) Diabetes mellitus Status: Chronic Assessment and plan: Blood sugars remained high but I am concerned that she will become very hypoglycemic due to her sporadic eating. Would avoid treating at this point Current Visit: No (3) Acute CVA (cerebrovascular accident) Status: Acute Assessment and plan: Large stroke and unable to tolerate p.o. medicines or feeding at this time. Avoid sedation for agitation Current Visit: No (4) Agitation Status: Acute Assessment and plan: Hold all sedation Current Visit: Yes (5) Alzheimer's type dementia Status: Acute Assessment and plan: Patient has end-stage dementia do not feel that Namenda or Aricept will add any benefit Current Visit: Yes (6) Hypothyroid Status: Acute Assessment and plan: levothyroxine 25 mcg IV daily Current Visit: Yes Hospitalist: Subjective Interval history: Patient remains minimally responsive even though she has not been given any more sedatives. Talk to the today about comfort care. She has been accepted on Friday to [facility]. If she is not able to recover from her stroke she may have to convert to hospice. Patient has eaten very little. Family still does not want a feeding tube due to advanced dementia and a large stroke. Exam - Constitutional Vitals: Period Temp Pulse Resp BP Sys/Shaw Pulse Ox Last 24 Hr 97.7 F-98.5 F 64-123 18-22 158-220/82-118 86-96 Exam: Heart Rate-[tachy] Lungs-[Clear but diminished, sleeping ] GI-[+bs soft, NT] Neuro altered and somnolent psych cannot assess due to AMS General [no acute distress] Results - Labs CBC & BMP: 01/10/17 06:03 01/10/17 06:03 Lab Results: I have reviewed the past 24 hour labs
[2017-01-13] MEDS: cefTRIAXone 1,000 MG in SODIUM CHLORIDE 0.9% 100 ML IV SCH (16:51)
[2017-01-13] MEDS: ENOXAPARIN 40 MG/0.4 ML SYRINGE SUBCUT SCH (21:45)
[2017-01-14] MEDS: DILTIAZEM 50 MG/10 ML VIAL IV PRN
[2017-01-14] MEDS: LEVOTHYROXINE 100 MCG VIAL IV SCH ×2 (05:58→07:12)
[2017-01-14] MEDS: PANTOPRAZOLE 40 MG TABLET PO SCH (08:39)
[2017-01-14] MEDS: INSULIN LISPRO 100 UNIT/ML SUBCUT SCH ×4 (08:41→20:42)
[2017-01-14] MEDS ORDERED: fentaNYL 12 MCG/HR PATCH TRANSDERM SCH (09:00)
--- NOTE | 2017-01-14 09:27 | Hospitalist Progress Note ---
Assessment and Plan (1) UTI (urinary tract infection) Status: Acute Assessment and plan: Growing E. coli sensitive to Rocephin Current Visit: No (2) Diabetes mellitus Status: Chronic Assessment and plan: Blood sugars remain high. Patient is not eating. Current Visit: No (3) Acute CVA (cerebrovascular accident) Status: Acute Assessment and plan: Large stroke and unable to tolerate p.o. medicines Current Visit: No (4) Agitation Status: Acute Assessment and plan: Patient moving constantly but does not not appear agitated. Current Visit: Yes (5) Alzheimer's type dementia Status: Acute Assessment and plan: Fentanyl patch started for comfort. Current Visit: Yes (6) Hypothyroid Status: Acute Assessment and plan: levothyroxine 25 mcg IV daily Current Visit: Yes Hospitalist: Subjective Interval history: Patient constantly moving her right side. Her eyes remain deviated to the left. Daughter at bedside tearful. Hard to watch her mom deteriorate. She is not eating. I will start a fentanyl patch as I do not want her to feel any pain from starvation. Exam - Constitutional Vitals: Period Temp Pulse Resp BP Sys/Shaw Pulse Ox Last 24 Hr 97.4 F-99.0 F 84-114 16-20 130-196/33-118 93-96 Exam: Heart Rate-[tachy] Lungs-[Clear GI-[+bs soft, NT] Neuro altered moving the right side very well. Left side is flaccid psych confused but not agitated just moving her right side constantly. General [no acute distress] Results - Labs CBC & BMP: 01/10/17 06:03 01/10/17 06:03 Lab Results: I have reviewed the past 24 hour labs
[2017-01-14] MEDS: cefTRIAXone 1,000 MG in SODIUM CHLORIDE 0.9% 100 ML IV SCH (17:04)
[2017-01-14] MEDS: ENOXAPARIN 40 MG/0.4 ML SYRINGE SUBCUT SCH (20:42)
[2017-01-15] MEDS: LEVOTHYROXINE 100 MCG VIAL IV SCH (06:26)
[2017-01-15] MEDS: PANTOPRAZOLE 40 MG TABLET PO SCH (08:51)
[2017-01-15] MEDS: INSULIN LISPRO 100 UNIT/ML SUBCUT SCH (08:51)
--- NOTE | 2017-01-15 09:14 | Discharge Summary ---
<Gil Gaviria - Last Filed: 01/15/17 09:18> Hospital Course - Hospital Course Hospital Course: Ms. Hilliard is an 86 year old white female who presented to the [place] ED on 01/08/2017 with complains of generalized weakness. She has a history of CVA with residual slurred, was found to have a UTI, agitation, Alzheimer's type dementia, hypothyroidism and generalized weakness. The patient was admitted to the hospital medicine service for further evaluation and treatment to include a subsequent stroke workup. UC were obtained and she was started on IV rocephin for the UTI. Her culture grew e. coli and she has been treated with rocephin. Head CT was negative for any acute infarction. Echocardiogram revealed EF estimated at 65% with grade I/IV diastolic dysfunction (abnormal relaxation filling pattern) and normal to mildly elevated filling pressures. MRI of the brain, however, found acute ischemic 16.8 mm infarction in the right external capsule, chronic left parietal and basal ganglia infarcts with progressive atrophy and extensive microvasculature disease. Neurology was consulted for further evaluation and recommendations. Patient's family did not want any NG tube placement or PEG tube placement. Neurology recommended continuing plavix and has been accepted for inpatient rehab. Patient not eating well. She has been accepted at [facility]. If rehab unsuccessful she will be converted to hospice. Patient has responded well to the fentanyl patch. Discharge Plan - Discharge Data Disposition: Disch/Xfer-Ip Rehab Fac - Discharge Medications New fentaNYL 12 MCG/HR PATCH [Duragesic 12 Patch] 1 patch TRANSDERM Q3DAY #5 patch Levothyroxine Tab [Synthroid Tab] 50 mcg PO DAILY@0700 #30 tablet Continue Clopidogrel [Plavix] 75 mg PO DAILY #30 tablet Carvedilol [Coreg] 6.25 mg PO BID #60 tablet Discontinued metFORMIN [Glucophage] 500 mg PO DAILY QUEtiapine [SEROquel] 100 mg PO TID - Follow Up or Referral - Forms/Instructions Instructions: Ischemic Stroke (DC), Self Care Measures After a Stroke (DC) Exam - Constitutional Vitals: Period Temp Pulse Resp BP Sys/Shaw Pulse Ox Last 24 Hr 97.1 F-100.3 F 104-118 16-20 160-189/60-103 93-97 Discharge Results Labs on day of discharge: Labs from last 24 hours 01/14/17 01/14/1701/14/17 20:01 15:44 11:16 POC Glucose 155 H 177 H 239 H DS: Provider Date of admission: 01/08/17 16:10 Primary care physician: . No PCP Attending physician on admission: Aayush Sigala MD Consults: 01/08/17 18:04 Consult to Occupational Therapy [CONS] Routine Reason for Occupational Therapy: Evaluate and Treat Consult to Physical Therapy [CONS] Routine Reason for Physical Therapy: Evaluate and Treat 01/09/17 15:00 Consult to Physician [CONS] Routine Comment: acute stroke, history of strokes Consulting Provider: Ulysses Veliz Person Notified: Manda Date Notified: 01/09/17 Time Notified: 15:11 01/12/17 15:39 Consult to Case Mgmt/Social Srvs [CONS] Routine Reason for Case Mgmt/Social Srvs: Rehab Consult Comment: [facility] for stroke Discharging clinician: Gil DUFFY Expected date of discharge: 01/15/17 <Camelia Roland - Last Filed: 01/15/17 10:00> Hospital Course - Time spent with patient Time with patient DS: Greater than 30 minutes (45 min) Diagnosis - Discharge Diagnosis (1) UTI (urinary tract infection) Status: Acute (2) Diabetes mellitus Status: Chronic (3) Acute CVA (cerebrovascular accident) Status: Acute (4) Agitation Status: Acute (5) Alzheimer's type dementia Status: Acute (6) Hypothyroid Status: Acute Discharge Plan - Discharge Data Condition at Discharge: Stable Discharge Diet: heart healthy (pureed ) Activity: resume usual activities as tolerated Hygiene: no restrictions Exam - Constitutional General appearance: normal weight, no acute distress - Respiratory Respiratory exam: Present: clear to auscultation bilaterally. Absent: rhonchi, wheezes - Cardiovascular Cardiovascular exam: Present: regular rate and rhythm. Absent: systolic murmur - GI/Abdominal GI/Abdominal exam: Present: normal bowel sounds, soft. Absent: tenderness
[2017-01-15 09:52] VITALS: BP 160/90
== END 2017-01-15 10:52 | DRG 689 ==
LOC: EDUNIT# → EDBD → N.ED 14:16 → SUATTDRO 16:10 → N.EDINP 16:10 → N.5E 18:02
PROVIDERS: ADMIT Internal Medicine; ATTEND Internal Medicine